=== PATIENT | female | born 1980 | race Caucasian/White ===

== ENCOUNTER 2017-05-19 12:56 | Emergency (ER) | payer OTHER ==
[2017-05-19 13:52] VITALS: RESP 18
--- NOTE | 2017-05-19 15:01 | XR ---
EXAMINATION TYPE: XR chest 2V DATE OF EXAM: 05/19/2017 COMPARISON: 05/30/2014 TECHNIQUE: PA and lateral views submitted. HISTORY: Productive cough FINDINGS: The lungs are clear and there is no pneumothorax, pleural effusion, or focal pneumonia. IMPRESSION: 1. No acute process.
--- NOTE | 2017-05-19 15:14 | ED ---
URI HPI - General Chief Complaint: Upper Respiratory Infection Stated Complaint: Chest Congestion Time Seen by Provider: 05/19/17 14:41 Source: patient Mode of arrival: ambulatory Limitations: no limitations - History of Present Illness Initial Comments: 37-year-old female patient presents to emergency department today for evaluation of nasal congestion, facial pressure, and cough 2 weeks. Patient states that she initially started with sore throat, nasal congestion, and cough. States that her sore throat has resolved however the nasal congestion and cough remained. She is coughing up green sputum, states that she is having green nasal discharge. States that her face hurts and that she has a lot of pressure. She states that she occasionally has trouble breathing. She states that she does feel wheezy. Patient denies any recent fever, chills, chest pain , abdominal pain, nausea, vomiting, diarrhea, constipation, back pain, numbness , tingling, headache, visual changes, hematuria, dysuria, urinary frequency, urinary urgency, or any other complaints. She does report being a cigarette smoker. - Related Data Home Medications Medication Instructions Recorded Confirmed Hydrocodone/Acetaminophen [[place] 1 each PO Q6H PRN 05/30/14 05/30/14 10-325] Previous Rx's Medication Instructions Recorded Cyclobenzaprine [Flexeril] 10 mg PO TID PRN #15 tab 05/30/14 Ibuprofen [Motrin] 600 mg PO Q8HR PRN #30 tab 05/30/14 Amoxic-Pot Clav 875-125Mg 1 tab PO Q12HR #20 tablet 05/19/17 [Augmentin 875-125] predniSONE 50 mg PO DAILY #5 tab 05/19/17 Allergies Allergy/AdvReac Type Severity Reaction Status Date / Time venom-honey bee Allergy Unknown Verified 05/19/17 13:48 [bee venom (honey bee)] Review of Systems ROS Statement: Those systems with pertinent positive or pertinent negative responses have been documented in the HPI. ROS Other: All systems not noted in ROS Statement are negative. Past Medical History Additional Past Medical History / Comment(s): chronic back pain History of Any Multi-Drug Resistant Organisms: None Reported Past Surgical History: Hysterectomy Past Psychological History: Anxiety Smoking Status: Current every day smoker Past Alcohol Use History: None Reported Past Drug Use History: Marijuana General Exam Limitations: no limitations General appearance: alert, in no apparent distress, other (This is a well- developed, well-nourished adult female patient in no acute distress. Temperature 97.8F, pulse 97, respirations 18, blood pressure 128/80, pulse ox 99% on room air.) Eye exam: Present: normal appearance, PERRL, EOMI. Absent: scleral icterus, conjunctival injection, periorbital swelling ENT exam: Present: normal exam, normal oropharynx, mucous membranes moist, TM's normal bilaterally Neck exam: Present: normal inspection. Absent: tenderness, meningismus, lymphadenopathy Respiratory exam: Present: normal lung sounds bilaterally, wheezes (Scattered expiratory wheezes posteriorly.). Absent: respiratory distress, rales, rhonchi , stridor Cardiovascular Exam: Present: regular rate, normal rhythm, normal heart sounds. Absent: systolic murmur, diastolic murmur, rubs, gallop, clicks GI/Abdominal exam: Present: soft, normal bowel sounds. Absent: distended, tenderness, guarding, rebound, rigid Neurological exam: Present: alert, oriented X3, CN II-XII intact Psychiatric exam: Present: normal affect, normal mood Skin exam: Present: warm, dry, intact, normal color. Absent: rash Course Vital Signs 05/19/17 05/19/17 13:49 15:27 Temperature 97.8 F 97.6 F Pulse Rate 97 89 Respiratory 18 18 Rate Blood Pressure 128/80 120/80 O2 Sat by Pulse 99 99 Oximetry Medical Decision Making - Medical Decision Making 37-year-old female patient presented for evaluation of nasal congestion, facial pressure, and cough 2 weeks. Chest x-ray was negative for any acute process. Patient will be treated with antibiotics for sinusitis as her symptoms have been present for 14 days. She will also be given a course of steroids for acute bronchitis. She is educated regarding smoking cessation. She is instructed to follow-up with her primary care physician for recheck in 1-2 days. She is instructed to return here immediately for any new, worsening, or concerning symptoms. She verbalizes understanding and agrees with this plan. - Radiology Data Radiology results: report reviewed, image reviewed 2 views of the chest are submitted shows the lungs are clear with no pneumothorax, pleural effusion, or focal pneumonia. Impression by Dr. Vanegas shows no acute process. Disposition Clinical Impression: Sinusitis, Acute bronchitis Disposition: HOME SELF-CARE Condition: Good Instructions: Sinusitis (ED), Acute Bronchitis (ED) Additional Instructions: Increase fluids. Use [id number] nasal decongestant. Take medications as directed. Return here immediately for any new, worsening, or concerning symptoms. Prescriptions: Amoxic-Pot Clav 875-125Mg [Augmentin 875-125] 1 tab PO Q12HR #20 tablet predniSONE 50 mg PO DAILY #5 tab Referrals: None,Stated [Primary Care Provider] - 1-2 days Time of Disposition: 15:13
[2017-05-19 15:28] VITALS: BP 120/80; PULSE 89; TEMP 97.6
== END 2017-05-19 15:28 | disposition home or self-care (01) ==
LOC: EC 12:56
DX: J32.9 Chronic sinusitis, unspecified (principal); J20.9 Acute bronchitis, unspecified; F17.200 Nicotine dependence, unspecified, uncomplicated; Z91.030 Bee allergy status
CPT/HCPCS: 71020; 99283

== ENCOUNTER 2021-02-21 10:44 | Emergency (ER) | payer OTHER ==
[2021-02-21 10:55] VITALS: BP 145/79; PULSE 77; RESP 16; TEMP 98
[2021-02-21] MEDS ORDERED: CIPROFLOXACIN-DEXAMETH 0.3-0.1% DROPS 7.5 ML BTL BOTH EARS STA (11:13)
--- NOTE | 2021-02-21 11:16 | ED ---
ENT HPI - General Chief complaint: ENT Stated complaint: Something in her ear Time Seen by Provider: 02/21/21 10:56 Source: patient, RN notes reviewed Mode of arrival: ambulatory Limitations: no limitations - History of Present Illness Initial comments: 41-year-old female presents emergency from chief complaint of bilateral ear issues. Patient states she feels like something: Ear states initially started and left ear notes in her right in both. Patient states that this started while camping. She denies any drainage. Patient states his poor carrying she can think of into her ear canal it's not helping. She feels like bugs crawling. Denies fevers or chills no prior surgery no other complaints. - Related Data Home Medications Medication Instructions Recorded Confirmed Hydrocodone/Acetaminophen [[place] 1 each PO Q6H PRN 05/30/14 05/30/14 10-325] Previous Rx's Medication Instructions Recorded Cyclobenzaprine [Flexeril] 10 mg PO TID PRN #15 tab 05/30/14 Ibuprofen [Motrin] 600 mg PO Q8HR PRN #30 tab 05/30/14 Amoxic-Pot Clav 875-125Mg 1 tab PO Q12HR #20 tablet 05/19/17 [Augmentin 875-125] predniSONE 50 mg PO DAILY #5 tab 05/19/17 Allergies Allergy/AdvReac Type Severity Reaction Status Date / Time venom-honey bee Allergy Unknown Verified 02/21/21 10:52 [bee venom (honey bee)] Review of Systems ROS Statement: Those systems with pertinent positive or pertinent negative responses have been documented in the HPI. ROS Other: All systems not noted in ROS Statement are negative. Past Medical History Additional Past Medical History / Comment(s): chronic back pain History of Any Multi-Drug Resistant Organisms: None Reported Past Surgical History: Hysterectomy Past Psychological History: Anxiety Smoking Status: Current every day smoker Past Alcohol Use History: None Reported Past Drug Use History: Marijuana General Exam Limitations: no limitations General appearance: alert, in no apparent distress Head exam: Present: atraumatic, normocephalic, normal inspection Eye exam: Present: normal appearance, PERRL, EOMI. Absent: scleral icterus, conjunctival injection, periorbital swelling ENT exam: Present: normal oropharynx, mucous membranes moist. Absent: TM's normal bilaterally, normal external ear exam (Bilateral EACs there is swelling, purulent drainage, excoriations noted) Neck exam: Present: normal inspection, full ROM. Absent: tenderness, meningismus, lymphadenopathy Respiratory exam: Present: normal lung sounds bilaterally. Absent: respiratory distress, wheezes, rales, rhonchi, stridor Cardiovascular Exam: Present: regular rate, normal rhythm, normal heart sounds. Absent: systolic murmur, diastolic murmur, rubs, gallop, clicks Course Vital Signs 02/21/21 10:52 Temperature 98.0 F Pulse Rate 77 Respiratory 16 Rate Blood Pressure 145/79 O2 Sat by Pulse 99 Oximetry Medical Decision Making - Medical Decision Making I did instruct the patient to stop morning chemicals into her ear canals. She is using eardrops as directed and return for any worsening change in symptoms. She will follow-up with primary care physician. Disposition Clinical Impression: Bilateral otitis externa Disposition: HOME SELF-CARE Condition: Stable Instructions (If sedation given, give patient instructions): Otitis Externa (ED) Additional Instructions: Use eardrops 4 drops twice daily for 7 days. Please return to the Emergency Department if symptoms worsen or any other concerns. Is patient prescribed a controlled substance at d/c from ED?: No Referrals: None,Stated [Primary Care Provider] - 1-2 days Time of Disposition: 11:16
== END 2021-02-21 11:50 | disposition home or self-care (01) ==
LOC: EC 10:44
DX: H60.93 Unspecified otitis externa, bilateral (principal); F41.9 Anxiety disorder, unspecified; F17.200 Nicotine dependence, unspecified, uncomplicated; F12.90 Cannabis use, unspecified, uncomplicated
CPT/HCPCS: 99283

== ENCOUNTER 2022-09-17 20:03 | Inpatient (IN) | payer MEDICAID, OTHER ==
--- NOTE | 2022-09-17 20:55 | ED ---
Psych HPI - General Chief Complaint: Psychiatric Symptoms Stated Complaint: mental health Time Seen by Provider: 09/17/22 20:29 Source: patient Mode of arrival: ambulatory - History of Present Illness Initial Comments: 43-year-old female with a long history of bipolar disorder and depression ADHD who presents tonight with complaints of despair she wants to kill herself she does want to be here anymore she states she has 46 she would try to shoot herself or hang herself. His multiple issues she states. She does admit to smoking marijuana denies any alcohol or other drug use at this time. Recently she did cut her forearm which is since healed up. She denies any other injury to her self at this time. She is very cheerful during the interview. MD Complaint: suicidal ideation, feels depressed - Related Data Home Medications Medication Instructions Recorded Confirmed No Known Home Medications 09/17/22 09/17/22 Allergies Allergy/AdvReac Type Severity Reaction Status Date / Time venom-honey bee Allergy Unknown Verified 09/17/22 21:56 [bee venom (honey bee)] Review of Systems ROS Statement: Those systems with pertinent positive or pertinent negative responses have been documented in the HPI. ROS Other: All systems not noted in ROS Statement are negative. Past Medical History Additional Past Medical History / Comment(s): chronic back pain History of Any Multi-Drug Resistant Organisms: None Reported Past Surgical History: Hysterectomy Past Psychological History: Anxiety, Bipolar, Depression Smoking Status: Current every day smoker Past Alcohol Use History: None Reported Past Drug Use History: Marijuana General Exam - General Exam Comments Initial Comments: This is a well developed well-nourished awake alert oriented 4 female who is tearful. Limitations: no limitations General appearance: alert, anxious Head exam: Present: atraumatic, normocephalic, normal inspection Eye exam: Present: normal appearance, PERRL, EOMI. Absent: scleral icterus, conjunctival injection, periorbital swelling ENT exam: Present: normal exam, mucous membranes moist Neck exam: Present: normal inspection. Absent: tenderness, meningismus, lymphadenopathy Respiratory exam: Present: normal lung sounds bilaterally. Absent: respiratory distress, wheezes, rales, rhonchi, stridor Cardiovascular Exam: Present: regular rate, normal rhythm, normal heart sounds. Absent: systolic murmur, diastolic murmur, rubs, gallop, clicks GI/Abdominal exam: Present: soft, normal bowel sounds. Absent: distended, tenderness, guarding, rebound, rigid Extremities exam: Present: normal inspection, full ROM, normal capillary refill. Absent: tenderness, pedal edema, joint swelling, calf tenderness Back exam: Present: normal inspection Neurological exam: Present: alert, oriented X3, CN II-XII intact Psychiatric exam: Present: normal affect, normal mood Skin exam: Present: warm, dry, intact, normal color. Absent: rash Course Vital Signs 09/17/22 20:05 Temperature 98 F Pulse Rate 107 H Respiratory 20 Rate Blood Pressure 126/80 O2 Sat by Pulse 100 Oximetry Medical Decision Making - Medical Decision Making The patient was evaluated by the EPS service and will be admitted for inpatient evaluation and treatment.Was pt. sent in by a medical professional or institution ([facility] Estrada, [employer]EL[employer], urgent care, hospital, or senior living...) When possible be specific @ -No Did you speak to anyone other than the patient for history (EMS, parent, family, police, friend...)? What history was obtained from this source @ -No Did you review nursing and triage notes (agree or disagree)? Why? @ -I reviewed and agree with nursing and triage notes Were old charts reviewed (outside hosp., previous admission, EMS record, old EKG, old radiological studies, urgent care reports/EKG's, senior living records)? Report findings @ -No old charts were reviewed Differential Diagnosis (chest pain, altered mental status, abdominal pain women, abdominal pain men, vaginal bleeding, weakness, fever, dyspnea, syncope, headache, dizziness, GI bleed, back pain, seizure, CVA, palpatations, mental health)? @ -not applicable EKG interpreted by me (3pts min.). @ -Not applicable X-rays interpreted by me (1pt min.). @ -None done CT interpreted by me (1pt min.). @ -None done U/S interpreted by me (1pt. min.). @ -None done What testing was considered but not performed or refused? (CT, X-rays, U/S, labs)? Why? @ -None What meds were considered but not given or refused? Why? @ -None Did you discuss the management of the patient with other professionals (professionals i.e. , IVAN, [employer] DEVELOPER, lab, RT, psych nurse, social work supervisor, personal investment adviser, teacher, special forces warrant officer, supportive employment case manager)? Give summary @ -EPS service Was smoking cessation discussed for >3mins.? @ -No Was critical care preformed (if so, how long)? @ -No Were there social determinants of health that impacted care today? How? (Homelessness, low income, unemployed, alcoholism, drug addiction, transportation, low edu. Level, literacy, decrease access to med. care, half-way, rehab)? @ -No Was there de-escalation of care discussed even if they declined (Discuss DNR or withdrawal of care, Hospice)? DNR status @ -No What co-morbidities impacted this encounter? (DM, HTN, Smoking, COPD, CAD, Cancer, CVA, ARF, Chemo, Hep., AIDS, mental health diagnosis, sleep apnea, morbid obesity)? @ -None Was patient admitted / discharged? Hospital course, mention meds given and route, prescriptions, significant lab abnormalities, going to OR and other pertinent info. @ -hospital course patient was admitted Undiagnosed new problem with uncertain prognosis? @ -No Drug Therapy requiring intensive monitoring for toxicity (Heparin, Nitro, In sulin, Cardizem)? @ -No Were any procedures done? @ -No Diagnosis/symptom? @ -Major depression, suicidal ideation Acute, or Chronic, or Acute on Chronic? @ -Acute on chronic Uncomplicated (without systemic symptoms) or Complicated (systemic symptoms)? @ -default Side effects of treatment? @ -No Exacerbation, Progression, or Severe Exacerbation? @ -No Poses a threat to life or bodily function? How? (Chest pain, [place], [place], pneumonia, PE, COPD, DKA, ARF, appy, cholecystitis, CVA, Diverticulitis, Homicidal, Suicidal, threat to staff... and all critical care pts) @ -S of nontreated - Lab Data Result diagrams: 09/17/22 21:31 09/17/22 21:31 Lab Results 09/17/22 09/17/22 09/17/22 Range/Units : 21: 21: WBC 6.9 (3.8-10.6) k/uL RBC 4.80 (3.80-5.40) m/uL Hgb 14.2 (11.4-16.0) gm/dL Hct 42.8 (34.0-46.0) % MCV 89.0 (80.0-100.0) fL MCH 29.6 (25.0-35.0) pg MCHC 33.2 (31.0-37.0) g/dL RDW 12.3 (11.5-15.5) % Plt Count 208 (150-450) k/uL MPV 8.1 Neutrophils % 76 % Lymphocytes % 18 % Monocytes % 3 % Eosinophils % 2 % Basophils % 0 % Neutrophils # 5.3 (1.3-7.7) k/uL Lymphocytes # 1.2 (1.0-4.8) k/uL Monocytes # 0.2 (0-1.0) k/uL Eosinophils # 0.1 (0-0.7) k/uL Basophils # 0.0 (0-0.2) k/uL Sodium 138 (137-145) mmol/L Potassium 4.4 (3.5-5.1) mmol/L Chloride 108 H (98-107) mmol/L Carbon Dioxide 23 (22-30) mmol/L Anion Gap 7 mmol/L BUN 17 (7-17) mg/dL Creatinine 0.77 (0.52-1.04) mg/dL Est GFR (CKD-EPI)AfAm >90 (>60 ml/min/1.73 sqM) Est GFR (CKD-EPI)NonAf >90 (>60 ml/min/1.73 sqM) Glucose 112 H (74-99) mg/dL Calcium 8.8 (8.4-10.2) mg/dL Total Bilirubin 0.6 (0.2-1.3) mg/dL AST 23 (14-36) U/L ALT 20 (4-34) U/L Alkaline Phosphatase 83 (38-126) U/L Total Protein 6.9 (6.3-8.2) g/dL Albumin 4.2 (3.5-5.0) g/dL Coronavirus (PCR) Not Detected (Not Detectd) Disposition Clinical Impression: Depression, Suicidal ideation Disposition: TRANSFER TO PSYCH HOSP/UNIT Condition: Stable Decision Date: 09/17/22 Decision Time: 22:03
[2022-09-17 21:41] LABS: Basophils % (A) 0 %; Eosinophils # (A) 0.1 k/uL (0-0.7); Eosinophils % (A) 2 %; HCT 42.8 % (34.0-46.0); HGB 14.2 gm/dL (11.4-16.0); Lymphocytes # (A) 1.2 k/uL (1.0-4.8); Lymphocytes % (A) 18 %; MCH 29.6 pg (25.0-35.0); MCHC 33.2 g/dL (31.0-37.0); Mean Platelet Volume 8.1; Monocytes # (A) 0.2 k/uL (0-1.0); Monocytes % (A) 3 %; Neutrophils # (A) 5.3 k/uL (1.3-7.7); Neutrophils % (A) 76 %; Platelet Count 208 k/uL (150-450); RDW 12.3 % (11.5-15.5); WBC 6.9 k/uL (3.8-10.6)
[2022-09-17 21:50] LABS: ALT 20 U/L (4-34); AST 23 U/L (14-36); African American GFR (CKD) >90 (>60 ml/min/1.73 sqM); Albumin 4.2 g/dL (3.5-5.0); Alkaline Phosphatase 83 U/L (38-126); Anion Gap 7 mmol/L; Blood Urea Nitrogen 17 mg/dL (7-17); Calcium 8.8 mg/dL (8.4-10.2); Carbon Dioxide 23 mmol/L (22-30); Chloride 108 mmol/L (98-107); Glucose 112 mg/dL (74-99); Non-African American GFR(CKD) >90 (>60 ml/min/1.73 sqM); Potassium 4.4 mmol/L (3.5-5.1); Sodium 138 mmol/L (137-145); Total Bilirubin 0.6 mg/dL (0.2-1.3); Total Protein 6.9 g/dL (6.3-8.2)
[2022-09-17] MEDS ORDERED: MAG HYDROX/AL HYDROX/SIMETH 30 ML CUP PO PRN (21:58)
[2022-09-17] MEDS ORDERED: MAGNESIUM HYDROXIDE 2,400 MG/10 ML CUP PO PRN (21:58)
[2022-09-17] MEDS ORDERED: ACETAMINOPHEN TAB 325 MG TAB PO PRN (21:58)
[2022-09-17] MEDS ORDERED: HALOPERIDOL LACTATE 5 MG/ML 1 ML VIAL IM PRN (21:58)
[2022-09-17] MEDS ORDERED: haloperidoL 5 MG TAB PO PRN (22:00)
[2022-09-17] MEDS ORDERED: LORazepam 2 MG/ML INJ IM PRN (22:00)
[2022-09-17] MEDS: LORazepam 1 MG TAB PO PRN (22:44)
[2022-09-18] MEDS: NICOTINE 14MG/24HR PATCH TRANSDERM SCH (09:01)
--- NOTE | 2022-09-18 11:34 | P.HP ---
Psychiatric H&P - . H&P Date: 09/18/22 History & Physical: Allergies Allergy/AdvReac Type Severity Reaction Status Date / Time venom-honey bee Allergy Unknown Verified 09/17/22 21:56 bee venom (honey bee) Vital Signs Temp 97.1 F L 09/17/22 22:48 Pulse 82 09/17/22 22:48 Resp 17 09/17/22 22:48 BP 136/92 09/17/22 22:48 Pulse Ox 100 09/17/22 22:48 FiO2 Intake & Output 09/17/22 09/18/22 09/18/22 18:59 06:59 18:59 Weight 74.843 kg Laboratory Last Values WBC 6.9 k/uL (3.8-10.6) 09/17/22 21: RBC 4.80 m/uL (3.80-5.40) 09/17/22 21:31 Hgb 14.2 gm/dL (11.4-16.0) 09/17/22 21: Hct 42.8 % (34.0-46.0) 09/17/22 21: MCV 89.0 fL (80.0-100.0) 09/17/22 21: MCH 29.6 pg (25.0-35.0) 09/17/22 21: MCHC 33.2 g/dL (31.0-37.0) 09/17/22 21: RDW 12.3 % (11.5-15.5) 09/17/22 21: Plt Count 208 k/uL (150-450) 09/17/22 21: MPV 8.1 09/17/22 21: Neutrophils % 76 % 09/17/22 21: Lymphocytes % 18 % 09/17/22 21: Monocytes % 3 % 09/17/22 21: Eosinophils % 2 % 09/17/22 21: Basophils % 0 % 09/17/22 21: Neutrophils # 5.3 k/uL (1.3-7.7) 09/17/22 21: Lymphocytes # 1.2 k/uL (1.0-4.8) 09/17/22 21: Monocytes # 0.2 k/uL (0-1.0) 09/17/22 21: Eosinophils # 0.1 k/uL (0-0.7) 09/17/22 21: Basophils # 0.0 k/uL (0-0.2) 09/17/22 21: Sodium 138 mmol/L (137-145) 09/17/22 21: Potassium 4.4 mmol/L (3.5-5.1) 09/17/22: Chloride 108 mmol/L (98-107) H 09/17/22: Carbon Dioxide 23 mmol/L (22-30) 09/17/22: Anion Gap 7 mmol/L 09/17/22: BUN 17 mg/dL (7-17) 09/17/22: Creatinine 0.77 mg/dL (0.52-1.04) 09/17/22: Est GFR (CKD-EPI)AfAm >90 (>60 ml/min/1.73 sqM) 09/17/22: Est GFR (CKD-EPI)NonAf >90 (>60 ml/min/1.73 sqM) 09/17/22: Glucose 112 mg/dL (74-99) H 09/17/22: Estimated Ave Glu mg/dL 118 09/17/22: Hemoglobin A1c 5.7 % (0.0-6.0) 09/17/22: Calcium 8.8 mg/dL (8.4-10.2) 09/17/22: Total Bilirubin 0.6 mg/dL (0.2-1.3) 09/17/22: AST 23 U/L (14-36) 09/17/22: ALT 20 U/L (4-34) 09/17/22: Alkaline Phosphatase 83 U/L (38-126) 09/17/22: Total Protein 6.9 g/dL (6.3-8.2) 09/17/22: Albumin 4.2 g/dL (3.5-5.0) 09/17/22: TSH 0.448 mIU/L (0.465-4.680) L 09/17/22 21: Coronavirus (PCR) Not Detected (Not Detectd) 09/17/22 21:23 11:28 IDENTIFYING DATA: Patient is a 42-year-old female who is currently living with her sister and family members, she is , she has 2 kids and is unemployed. HPI: Patient presented to the hospital yesterday complaining of depression and multiple suicidal thoughts and plans. Patient was admitted voluntarily to the mental health unit. Patient does not have a history of previous psychiatric admissions however does claim that she has a history of bipolar disorder. She also has a significant history for methamphetamine and cannabis use. Patient was seen today sleeping and agreeable to speak to card writer hand in the office. She claims that she is feeling "tired of life" and states that she doesn't want to "be on the earth anymore". She claims that multiple people have been lying to her and she is "over it". She claims that her recently left her about 2 days ago. She states that she was previously sober from methamphetamine use however relapsed at that time. She claims that she has been having significant relationship problems. She claims she wanted to come in the hospital before she started to "cut myself". She states that she is depressed, feeling very unhappy and also endorsing anxiety. She states that her sleep has been on and off at this time, appetite as been fairly poor. Patient denies any homicidal ideations intent or plan. She claims that she still does have suicidal thoughts however no plan today. At this time patient denies any auditory or visual hallucinations. Patient denies any flight of ideas racing thoughts and incr eased in goal directed behavior. He claims that she may have had a manic episode in the past however was also using drugs. Patient admits to using methamphetamine recently as noted above, states that she just got out of rehab in June. She states that she also uses marijuana daily and also cigarettes. PAST PSYCHIATRIC HISTORY: Patient states that she has a history of bipolar disorder. Patient denies being on any psychiatric medications. Patient denies any previous psychiatric hospitalizations. Patient denies any psychiatric outpatient follow-up. She claims that she attempted suicide twice in the past by cutting her wrists. PMH: As per ER note ALLERGIES: as per EMR CHEMICAL DEPENDENCY HISTORY: as per HPI FAMILY PSYCHIATRIC/SUBSTANCE USE HISTORY: Claims that her sister committed suicide. SOCIAL HISTORY: Patient was born and raised in [place], claims that she completed up to the ninth grade in school. 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 She currently lives with her sister and her family members, she is . She has 2 kids. She claims that she went to [facility] for about 6 years in the past when she was 18 years old for criminal sexual conduct. MENTAL STATUS EXAM: General Appearance: Patient appears to be short in stature, overweight, short hair, multiple tattoos, stated age is alert, directable, and attempts to cooperate. Patient appears to have poor hygiene and grooming. Poor eye contact. Behavior: Patient is seated without any agitated behavior. Looking at the floor. Appears to be upset. Speech: Patient's speech is fluent and nonpressured. Mood/Affect: Patient reports their mood is depressed and anxious, affect is congruent and constricted. Suicidality/Homicidality: Patient denies having any homicidal ideation intent or plan. Denies any suicidal ideations intent or plan Perceptions: Patient denies any visual hallucinations and denies any auditory hallucinations Though content/process: There is no evidence of any delusional thought content and thought process is linear and goal-directed. Focused on and suicidal thoughts. hopeless Memory and concentration: AOX3, grossly intact for the purposes of this session. Can spell "WORLD" backwards Judgment and insight: poor STRENGTHS/WEAKNESSES: strength is that patient is resilient. Weakness is that patient has poor judgment and is impulsive INTELLECT: average IMPRESSIONS: Bipolar disorder, currently depressed Methamphetamine abuse Cannabis use disorder Nicotine dependence PLAN: -Patient is admitted under voluntary status to MHU for stabilization of psychiatric symptoms and safety. Patient has signed adult voluntary form and medication consent and is placed in patient's chart. -Medications : Will start patient on Cymbalta 30 mg daily for mood/anxiety, lithium 150 mg twice a day for mood stabilization/suicidal thoughts, trazodone 100 mg daily at bedtime when necessary for insomnia. -Ativan and Haldol PRN for agitation/aggression -Patient was counselled on substance abuse and desired to cut back on use -Patient was informed of the risks, benefits and side effects of the medication and patient verbally consented to taking the medications. Patient signed med consent form and was placed in chart. -Internal Medicine consult to perform medical evaluation and physical. -NRT - nicotine patch -SW on board for discharge planning. Encourage patient to participate in groups to work on coping skills. Patient is not interested in going to rehab at this time.
[2022-09-18] MEDS: DULoxetine HCL 30 MG CAPSULE.DR PO SCH (12:18)
[2022-09-18] MEDS: LITHIUM CARBONATE 150 MG CAP PO SCH ×2 (12:18→20:26)
[2022-09-18] MEDS: LORazepam 1 MG TAB PO PRN (13:38)
[2022-09-18] MEDS: traZODone HCL 100 MG TAB PO PRN (20:27)
--- NOTE | 2022-09-18 23:36 | P.CONS ---
History of Present Illness - Reason for Consult Consult date: 09/18/22 - History of Present Illness The patient is a 42-year-old female with a PMH of chronic back and neck pain, tobacco abuse, and multiple psychiatric illnesses who had presented to the emergency room with complaints of depression and suicidal ideation. The patient was admitted to the mental health unit when she was seen and evaluated. The patient reports that she recently lost her life and has also become homeless, which is causing her a lot of stress. She also reports a prior history of methamphetamine abuse but denied any recent substance use. She is also denied alcohol use. Reports smoking half pack of cigarette daily. Denied experiencing chest pain, shortness of breath, fever, chills, cough, nausea, vomiting, abdominal pain, diarrhea. Review of systems: Pertinent positives and negatives as discussed in HPI, a complete review of systems was performed and all other systems are negative. Physical examination: General: non toxic, no distress, appears at stated age, obese Derm: no unusual rashes/lesions, no unusual ecchymoses, warm, dry Head: atraumatic, normocephalic, symmetric Eyes: EOMI, no lid lag, anicteric sclera ENT: Nose and ears atraumatic, no thrush, no pharyngeal erythema Neck: trachea midline, supple Mouth: no lip lesion, mucus membranes moist Cardiovascular: S1S2 reg, no murmur, no edema Lungs: CTA bilateral, no rhonchi, no rales , no accessory muscle use Abdominal: soft, nontender to palpation, no guarding Ext: no gross muscle atrophy, no contractures, Neuro: No gross focal neuro deficits noted Psych: Alert, oriented, appropriate affect Assessment/plan Low TSH -Check T4 and T3 levels Tobacco abuse -Advised on importance of cessation Depression and suicidal ideation -As per psychiatry Thank you for allowing us to participate in the care of this patient. We will follow peripherally. Do not hesitate to contact us with questions. Someone can be reached from the [facility] hospitalist group at all hours of the day at [phone]. Past Medical History Additional Past Medical History / Comment(s): chronic back pain History of Any Multi-Drug Resistant Organisms: None Reported Past Surgical History: Hysterectomy Past Psychological History: Anxiety, Bipolar, Depression Smoking Status: Current every day smoker Past Alcohol Use History: None Reported Past Drug Use History: Marijuana - Past Family History Mother Family Medical History: Hypertension Medications and Allergies Home Medications Medication Instructions Recorded Confirmed Type No Known Home Medications 09/17/22 09/17/22 History Allergies Allergy/AdvReac Type Severity Reaction Status Date / Time venom-honey bee Allergy Unknown Verified 09/17/22 21:56 [bee venom (honey bee)] Results CBC & Chem 7: 09/17/22 21:31 09/17/22 21:31 Labs: Abnormal Lab Results - Last 24 Hours (Table) 09/17/22 Range/Units 21:31 TSH 0.448 L (0.465-4.680) mIU/L
[2022-09-19 06:33] VITALS: RESP 16
[2022-09-19] MEDS: DULoxetine HCL 30 MG CAPSULE.DR PO SCH (08:27)
[2022-09-19] MEDS: LITHIUM CARBONATE 150 MG CAP PO SCH (08:27)
[2022-09-19] MEDS: LORazepam 1 MG TAB PO PRN ×2 (08:28→18:06)
[2022-09-19] MEDS: NICOTINE 14MG/24HR PATCH TRANSDERM SCH (08:29)
[2022-09-19] MEDS ORDERED: LORazepam 2 MG/ML INJ IM PRN (10:47)
[2022-09-19] MEDS: hydrOXYzine pamoate 25 MG CAP PO PRN (11:37)
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
[2022-09-19] MEDS: LITHIUM CARBONATE 300 MG CAP PO SCH (21:30)
[2022-09-20] MEDS: DULoxetine HCL 30 MG CAPSULE.DR PO SCH (08:18)
[2022-09-20] MEDS: NICOTINE 14MG/24HR PATCH TRANSDERM SCH (08:18)
[2022-09-20] MEDS: LORazepam 1 MG TAB PO PRN ×3 (08:18→20:39)
[2022-09-20] MEDS: LITHIUM CARBONATE 300 MG CAP PO SCH ×2 (08:19→20:38)
[2022-09-20] MEDS: hydrOXYzine pamoate 25 MG CAP PO PRN (12:30)
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
[2022-09-20] MEDS: traZODone HCL 100 MG TAB PO PRN (20:39)
[2022-09-21] MEDS: NICOTINE 14MG/24HR PATCH TRANSDERM SCH (08:29)
[2022-09-21] MEDS: DULoxetine HCL 30 MG CAPSULE.DR PO SCH (08:29)
[2022-09-21] MEDS: LORazepam 1 MG TAB PO PRN ×2 (08:29→18:02)
[2022-09-21] MEDS: LITHIUM CARBONATE 300 MG CAP PO SCH ×2 (08:29→19:39)
[2022-09-21 12:18] VITALS: BP 136/89; PULSE 83; TEMP 98
[2022-09-21] MEDS ORDERED: DULoxetine HCL 30 MG CAPSULE.DR PO ONE (14:00)
[2022-09-21] MEDS: hydrOXYzine pamoate 25 MG CAP PO PRN (19:38)
[2022-09-21] MEDS: traZODone HCL 100 MG TAB PO PRN (19:39)
--- NOTE | 2022-09-21 21:51 | PN ---
PROGRESS NOTE DATE OF SERVICE: 09/21/2022 CHIEF COMPLAINT: The patient was admitted for depression and significant thoughts of suicide. INTERVAL HISTORY: The patient has been doing fair. She had a quiet day yesterday. She comes out on the unit. She did attend one group yesterday but chose not to attend any others. Yesterday, she seemed to indicate that her mood was a little better overall. She continues with ups and downs in anxiety. She acknowledged that substance abuse issues are in the picture. She did receive p.r.n. medicines later in the evening for anxiety. She also received trazodone. She slept 7 hours last night. Today, she has been up and in general doing about the same. She chose not to attend groups today. She has been cooperative with care. She interacts with peers. She tolerates psychotropic medications. MENTAL STATUS: The patient gave fairly good eye contact. She was somewhat restless. She answered questions appropriately. Her thoughts were clear and coherent. She was somewhat spontaneous and interactive. Her affect was anxious. Her mood was down. She was somewhat distressed. There was no indication of thought disorder. She was denying thoughts of harm. Cognition was clear. ASSESSMENT AND PLAN: We will continue to engage the patient in individual and group therapeutic activities. It is noteworthy that the patient has been diagnosed with bipolar disorder though in my interview with the patient, she did not indicate that she has had any past episodes at any point in time of delia or hypomania. Thus, I would treat on the basis of a diagnosis of major depression. I will increase Cymbalta from 30 mg a day up to 60 mg a day. I reviewed with the patient that if she does have an underlying diagnosis of bipolar disorder, that antidepressants do present some risk to increase cycling. The patient seemed to be comfortable with the idea that at this point she is not showing any signs in that direction. She will continue lithium carbonate 300 mg twice a day which would be appropriate as an augmentation medication for depression. She will also continue trazodone 100 mg p.r.n. I discussed medication issues with the patient including indications, potential side effects and typical treatment course treating depression. We will focus on stabilization and discharge planning. MMMIKEL / LORETAN: [id number] /
[2022-09-22] MEDS ORDERED: DULoxetine HCL 60 MG CAPSULE.DR PO SCH (09:00)
[2022-09-22] MEDS: LITHIUM CARBONATE 300 MG CAP PO SCH (09:37)
[2022-09-22] MEDS: NICOTINE 14MG/24HR PATCH TRANSDERM SCH (09:37)
[2022-09-22] MEDS: hydrOXYzine pamoate 25 MG CAP PO PRN (09:38)
--- NOTE | 2022-09-22 09:43 | P.DS ---
Providers Date of admission: 09/17/22 21:56 Expected date of discharge: 09/22/22 Attending physician: Gio Jeffrey MD Consults: 09/17/22 21:58 Consult Physician Routine Consulting Provider: [facility] Consult Reason/Comments: H&P Do you want consulting provider notified?: Yes Primary care physician: Stated None - Discharge Diagnosis(es) (1) Bipolar disorder current episode depressed Current Visit: Yes Status: Acute Priority: High (2) Methamphetamine abuse Current Visit: Yes Status: Acute Priority: High (3) Cannabis use disorder Current Visit: Yes Status: Acute Priority: Medium (4) Nicotine dependence Current Visit: Yes Status: Acute Priority: Low Hospital Course: Admission HPI: Admission note was completed by ticket writer "Patient is a 42-year-old female who is currently living with her sister and family members, she is , she has 2 kids and is unemployed. Patient presented to the hospital yesterday complaining of depression and multiple suicidal thoughts and plans. Patient was admitted voluntarily to the mental health unit. Patient does not have a history of previous psychiatric admissions however does claim that she has a history of bipolar disorder. She also has a significant history for methamphetamine and cannabis use. Patient was seen today sleeping and agreeable to speak to ticket writer in the office. She claims that she is feeling "tired of life" and states that she doesn't want to "be on the earth anymore". She claims that multiple people have been lying to her and she is "over it". She claims that her recently left her about 2 days ago. She states that she was previously sober from methamphetamine use however relapsed at that time. She claims that she has been having significant relationship problems. She claims she wanted to come in the hospital before she started to "cut myself". She states that she is depressed, feeling very unhappy and also endorsing anxiety. She states that her sleep has been on and off at this time, appetite as been fairly poor. Patient denies any homicidal ideations intent or plan. She claims that she still does have suicidal thoughts however no plan today. At this time patient denies any auditory or visual hallucinations. Patient denies any flight of ideas racing thoughts and increased in goal directed behavior. He claims that she may have had a manic episode in the past however was also using drugs. Patient admits to using methamphetamine recently as noted above, states that she just got out of rehab in June. She states that she also uses marijuana daily and also cigarettes." Hospital course: Upon admission to the unit patient was directable and agreeable to commence treatment and signed adult voluntary form . Patient got along well with other patients on the unit and followed unit protocol. Patient was compliant with the medications and denied any side effects throughout hospital course. Patient was started on Cymbalta and increase her dose of 60 mg daily for mood/anxiety/pain, lithium 300 mg twice a day for mood stabilization/suicidal thoughts, trazodone 100 mg daily at bedtime when necessary for insomnia. Patient spoke of her stressors and engaged in therapy both group and individual. Patient was also seen by medical team for history and physical exam. Throughout the course of the hospitalization patient gradually improved with regards to mood, anxiety, sleep and returned back to their baseline level of functioning. On the day of discharge patient denied any suicidal or homicidal ideations intent or plan denied any auditory or visual hallucinations. Patient endorsed wanting to live for her health and her kids. The patient denied any access to guns or weapons. Patient denied any paranoia and did not endorse any delusions. Patient does have a significant history of substance abuse and was counseled on abstaining from all substances including alcohol and marijuana. Patient was offered however declined inpatient substance-abuse rehab. Patient elected to do outpatient substance use treatment program through [facility]. Patient was also counseled on the medications and need for regular compliance and was encouraged to follow-up with their outpatient appointment for mental health and also for primary care. Prior to discharge a family meeting will be arranged by manager social to answer any questions and ensure safety upon discharge. Mental status exam: General Appearance: Patient appears to have short hair, tattoos, stated age is alert, pleasant, and cooperative. Patient is in no acute distress and has improved hygiene and grooming Behavior: Patient is calmly seated without any agitated behavior. Speech: Patient's speech is fluent and nonpressured. Mood/Affect: Patient reports their mood is "good", affect is congruent Suicidality/Homicidality: Patient denies having any suicidal or homicidal ideation intent or plan. Perceptions: Patient denies any auditory or visual hallucinations. Though content/process: There is no evidence of any delusional thought content and thought process is linear and goal-directed. Memory and concentration: AOX3, grossly intact for the purposes of this session. Can spell "WORLD" backwards correctly. Judgment and insight: chronically poor, however has improved with guarded prognosis Impression: Bipolar disorder, currently depressed Methamphetamine abuse Cannabis use disorder Nicotine dependence Plan: -Continue with discharge today as patient has improved and stabilized psychiatrically and is not currently an imminent threat to herself and/or others. Patient will remain at chronically elevated risk for harm to self and/or others due to her polysubstance abuse. -Continue medications: Cymbalta 60 mg daily for mood/anxiety/pain, trazodone 100 mg daily at bedtime when necessary for sleep, lithium 300 mg twice a day for mood stabilization/suicidal thoughts. -Patient was counseled on the need for medication compliance and appropriate follow-up at mental health and also primary care for medical issues. Patient verbalized understanding and agreed. -Social work to arrange for and conduct family meeting to ensure safety upon discharge and answer any questions/concerns. Social work also to arrange for patients follow up appointments with [facility] for psychiatric care along with follow up with primary care provider. -Patient counseled on abstaining from recreational drugs and marijuana and alcohol. Was informed/educated on the adverse effects on their physical and mental health. Patient verbally agreed and understood. Patient was offered substance abuse treatment however declined at this time. -Patient was instructed to return to the hospital or seek immediate medical care if their psychiatric or medical symptoms do worsen or reoccur. Vital Signs Temp 98 F 09/21/22 12:18 Pulse 83 09/21/22 12:18 Resp 16 09/21/22 12:18 BP 136/89 09/21/22 12:18 Pulse Ox 96 09/21/22 12:18 FiO2 Allergies Allergy/AdvReac Type Severity Reaction Status Date / Time venom-honey bee Allergy Unknown Verified 09/17/22 21:56 [bee venom (honey bee)] Laboratory Results WBC 6.9 k/uL (3.8-10.6) 09/17/22 21:31 RBC 4.80 m/uL (3.80-5.40) 09/17/22 21:31 Hgb 14.2 gm/dL (11.4-16.0) 09/17/22 21:31 Hct 42.8 % (34.0-46.0) 09/17/22 21: MCV 89.0 fL (80.0-100.0) 09/17/22: MCH 29.6 pg (25.0-35.0) 09/17/22: MCHC 33.2 g/dL (31.0-37.0) 09/17/22: RDW 12.3 % (11.5-15.5) 09/17/22: Plt Count 208 k/uL (150-450) 09/17/22: MPV 8.1 09/17/22: Neutrophils % 76 % 09/17/22: Lymphocytes % 18 % 09/17/22: Monocytes % 3 % 09/17/22: Eosinophils % 2 % 09/17/22: Basophils % 0 % 09/17/22: Neutrophils # 5.3 k/uL (1.3-7.7) 09/17/22: Lymphocytes # 1.2 k/uL (1.0-4.8) 09/17/22: Monocytes # 0.2 k/uL (0-1.0) 09/17/22: Eosinophils # 0.1 k/uL (0-0.7) 09/17/22: Basophils # 0.0 k/uL (0-0.2) 09/17/22: Sodium 138 mmol/L (137-145) 09/17/22: Potassium 4.4 mmol/L (3.5-5.1) 09/17/22: Chloride 108 mmol/L (98-107) H 09/17/22: Carbon Dioxide 23 mmol/L (22-30) 09/17/22: Anion Gap 7 mmol/L 09/17/22: BUN 17 mg/dL (7-17) 09/17/22: Creatinine 0.77 mg/dL (0.52-1.04) 09/17/22 21: Est GFR (CKD-EPI)AfAm >90 (>60 ml/min/1.73 sqM) 09/17/22: Est GFR (CKD-EPI)NonAf >90 (>60 ml/min/1.73 sqM) 09/17/22 21: Glucose 112 mg/dL (74-99) H 09/17/22 21:[address] Glu mg/dL 118 09/17/22 21:31 Hemoglobin A1c 5.7 % (0.0-6.0) 09/17/22 21:31 Calcium 8.8 mg/dL (8.4-10.2) 09/17/22 21:31 Total Bilirubin 0.6 mg/dL (0.2-1.3) 09/17/22 21:31 AST 23 U/L (14-36) 09/17/22 21: ALT 20 U/L (4-34) 09/17/22 21:31 Alkaline Phosphatase 83 U/L (38-126) 09/17/22 21: Total Protein 6.9 g/dL (6.3-8.2) 09/17/22 21: Albumin 4.2 g/dL (3.5-5.0) 09/17/22 21:31 TSH 0.448 mIU/L (0.465-4.680) L 09/17/22 21:31 Total T4 9.3 ug/dL (4.5 - 10.9) 09/19/22 09:22 Free T4 1.44 ng/dL (0.78-2.19) 09/19/22 09:22 Total T3 129.0 ng/dL (60.0-180.0) 09/19/22 09:22 [place] 0.5 mmol/L 09/22/22 06:20 Coronavirus (PCR) Not Detected (Not Detectd) 09/17/22 21:31 Patient Condition at Discharge: Stable Plan - Discharge Summary New Discharge Prescriptions: New DULoxetine HCL [Cymbalta] 60 mg PO DAILY 30 Days #30 cap Nicotine 14Mg/24Hr Patch [Habitrol] 1 patch TRANSDERM DAILY 14 Days #14 patch hydrOXYzine pamoate [Vistaril] 25 mg PO BID PRN 30 Days #60 cap PRN Reason: Anxiety traZODone HCL [Desyrel] 100 mg PO HS PRN 30 Days #30 tab PRN Reason: Insomnia [place] Carbonate 300 mg PO BID 30 Days #60 cap Discharge Medication List DULoxetine HCL [Cymbalta] 60 mg PO DAILY 30 Days #30 cap 09/22/22 [Rx] [place] Carbonate 300 mg PO BID 30 Days #60 cap 09/22/22 [Rx] Nicotine 14Mg/24Hr Patch [Habitrol] 1 patch TRANSDERM DAILY 14 Days #14 patch 09/22/22 [Rx] hydrOXYzine pamoate [Vistaril] 25 mg PO BID PRN 30 Days #60 cap 09/22/22 [Rx] traZODone HCL [Desyrel] 100 mg PO HS PRN 30 Days #30 tab 09/22/22 [Rx] Follow up Appointment(s)/Referral(s): None,Stated [Primary Care Provider] - 1-2 days Activity/Diet/Wound Care/Special Instructions: Avoid the use of street drugs and alcohol. Take all prescriptions as prescribed. When you are in need of refills on your medications, please contact your medical provider and/or outpatient psychiatrist to have this done. Please go to scheduled outpatient appointment for aftercare treatment. If symptoms r eturn or become worse, call the crisis line at and/or go to the nearest emergency room for evaluation Discharge Disposition: HOME SELF-CARE
== END 2022-09-22 11:41 | disposition home or self-care (01) | DRG 885 ==
LOC: EC 20:03 → 3MHU 21:56
PROVIDERS: ADMIT Psychiatry & Neurology Psychiatry; ATTEND Psychiatry & Neurology Psychiatry
DX: F31.30 Bipolar disorder, current episode depressed, mild or moderate severity, unspecified (principal); R45.851 Suicidal ideations; F12.90 Cannabis use, unspecified, uncomplicated; F15.90 Other stimulant use, unspecified, uncomplicated; F17.210 Nicotine dependence, cigarettes, uncomplicated; F41.9 Anxiety disorder, unspecified; G47.00 Insomnia, unspecified; Z79.899 Other long term (current) drug therapy; Z20.822 Contact with and (suspected) exposure to COVID-19
CPT/HCPCS: 36415; 80053; 80178; 82075; 83036; 84436; 84439; 84443; 84480; 84482; 85025; 87635; 99285

== ENCOUNTER 2024-09-26 06:55 | Emergency (ER) | payer OTHER ==
[2024-09-26] MEDS: methylPREDNISolone SOD SUCCI 125 MG/2 ML VIAL IV STA (07:19)
[2024-09-26] MEDS: ORPHENADRINE 30 MG/ML 2 ML VIAL IVP STA (07:20)
[2024-09-26] MEDS: HYDROmorphone 1 MG/ML 1 ML SYRINGE IVP STA (07:27)
--- NOTE | 2024-09-26 07:28 | ED ---
General Adult HPI - General Stated complaint: back pain/abd pain Time Seen by Provider: 09/26/24 06:56 Source: patient, RN notes reviewed Mode of arrival: EMS Limitations: no limitations - History of Present Illness Initial comments: 44-year-old female presents emergency department with chief complaint of low back pain. Patient states been having creasing pain over last couple weeks. Patient states she was seen Varinderyair Montero and was told that she probably need surgery. She states she had to go home because her mom went on to hospice. Patient states that she was at [facility] today but was not seen and was picked up by EMS and the waiting room. Patient states she has pain rating down her left leg. She denies any bowel, bladder and cons retention no saddle anesthesias no other complaints. - Related Data Previous Rx's Medication Instructions Recorded DULoxetine HCL [Cymbalta] 60 mg PO DAILY 30 Days #30 cap 09/22/22 [place] Carbonate 300 mg PO BID 30 Days #60 cap 09/22/22 Nicotine 14Mg/24Hr Patch [Habitrol] 1 patch TRANSDERM DAILY 14 Days 09/22/22 #14 patch hydrOXYzine pamoate [Vistaril] 25 mg PO BID PRN 30 Days #60 cap 09/22/22 traZODone HCL [Desyrel] 100 mg PO HS PRN 30 Days #30 tab 09/22/22 Nitrofurantoin Monohyd/M-Cryst 100 mg PO Q12HR #14 cap 09/26/24 [Macrobid] predniSONE 50 mg PO DAILY #5 tab 09/26/24 Allergies Allergy/AdvReac Type Severity Reaction Status Date / Time naproxen Allergy Rash/Hives Verified 09/26/24 07:11 venom-honey bee Allergy Unknown Verified 09/17/22 21:56 [bee venom (honey bee)] Review of Systems ROS Statement: Those systems with pertinent positive or pertinent negative responses have been documented in the HPI. ROS Other: All systems not noted in ROS Statement are negative. Past Medical History Additional Past Medical History / Comment(s): chronic back pain History of Any Multi-Drug Resistant Organisms: None Reported Past Surgical History: Hysterectomy Past Psychological History: Anxiety, Bipolar, Depression Smoking Status: Current every day smoker Past Alcohol Use History: None Reported Past Drug Use History: Marijuana - Past Family History Mother Family Medical History: Hypertension General Exam Limitations: no limitations General appearance: alert, in no apparent distress Head exam: Present: atraumatic, normocephalic, normal inspection Eye exam: Present: normal appearance, PERRL, EOMI. Absent: scleral icterus, conjunctival injection, periorbital swelling Neck exam: Present: normal inspection. Absent: tenderness, meningismus, lymphadenopathy Respiratory exam: Present: normal lung sounds bilaterally. Absent: respiratory distress, wheezes, rales, rhonchi, stridor Cardiovascular Exam: Present: regular rate, normal rhythm, normal heart sounds. Absent: systolic murmur, diastolic murmur, rubs, gallop, clicks GI/Abdominal exam: Present: soft, normal bowel sounds. Absent: distended, tenderness, guarding, rebound, rigid Extremities exam: Present: other (Extremity strength equal bilaterally neurovascular intact pedal pulses equal bilaterally) Back exam: Present: full ROM, tenderness, muscle spasm, paraspinal tenderness. Absent: vertebral tenderness Neurological exam: Present: alert, oriented X3, CN II-XII intact, reflexes normal. Absent: motor sensory deficit Skin exam: Present: warm, dry, intact, normal color. Absent: rash Course Vital Signs 09/26/24 09/26/24 09/26/24 07:04 08:40 09:25 Temperature 98.1 F 98 F Pulse Rate 63 87 77 Respiratory 20 22 20 Rate Blood Pressure 150/118 157/106 155/91 O2 Sat by Pulse 98 98 98 Oximetry Medical Decision Making - Medical Decision Making Was pt. sent in by a medical professional or institution (IVAN Estrada, CLAIM ADJUSTER, urgent care, hospital, or alf...) When possible be specific @ -No Did you speak to anyone other than the patient for history (EMS, parent, family, police, friend...)? What history was obtained from this source @ -No Did you review nursing and triage notes (agree or disagree)? Why? @ -I reviewed and agree with nursing and triage notes Were old charts reviewed (outside hosp., previous admission, EMS record, old EKG, old radiological studies, urgent care reports/EKG's, alf records)? Report findings @ -Pain records from, calm patient had lumbar injection, MRI showing bulging disc with left radicular symptoms Differential Diagnosis (chest pain, altered mental status, abdominal pain women, abdominal pain men, vaginal bleeding, weakness, fever, dyspnea, syncope, headache, dizziness, GI bleed, back pain, seizure, CVA, palpatations, mental health, musculoskeletal)? @ -Differential Back Pain: Strain, zoster, cauda equina syndrome, epidural abscess, vertebral osteomyelitis, discitis, fracture, subluxation, disc herniation, DJD, spinal stenosis, dissection, AAA, pancreatitis, peptic ulcer disease, pyelonephritis, kidney stone, this is not meant to be an all-inclusive list. EKG interpreted by me (3pts min.). @ -None X-rays interpreted by me (1pt min.). @ -None done CT interpreted by me (1pt min.). @ -None done U/S interpreted by me (1pt. min.). @ -None done What testing was considered but not performed or refused? (CT, X-rays, U/S, labs)? Why? @ -None What meds were considered but not given or refused? Why? @ -None Did you discuss the management of the patient with other professionals (professionals i.e. , PA, CLAIM ADJUSTER, lab, RT, psych nurse, social media assistant, underground mining section foreman, teacher, business development officer, correctional case records supervisor)? Give summary @ -No Was smoking cessation discussed for >3mins.? @ -No Was critical care preformed (if so, how long)? @ -No Were there social determinants of health that impacted care today? How? (Homelessness, low income, unemployed, alcoholism, drug addiction, transportation, low edu. Level, literacy, decrease access to med. care, detention, rehab)? @ -No Was there de-escalation of care discussed even if they declined (Discuss DNR or withdrawal of care, Hospice)? DNR status @ -No What co-morbidities impacted this encounter? (DM, HTN, Smoking, COPD, CAD, Cancer, CVA, ARF, Chemo, Hep., AIDS, mental health diagnosis, sleep apnea, morbid obesity)? @ -None Was patient admitted / discharged? Hospital course, mention meds given and route, prescriptions, significant lab abnormalities, going to OR and other pertinent info. @ -Discharge patient is found to be in methamphetamines very erratic behavior in the emergency department. Patient does have evidence of UTI discharged on antibiotics patient advised she can continue steroids. She came very belligerent and left. Undiagnosed new problem with uncertain prognosis? @ -No Drug Therapy requiring intensive monitoring for toxicity (Heparin, Nitro, Insulin, Cardizem)? @ -No Were any procedures done? @ -No Diagnosis/symptom? @ -Methamphetamine abuse, lumbar back pain, UTI Acute, or Chronic, or Acute on Chronic? @ -Acute Uncomplicated (without systemic symptoms) or Complicated (systemic symptoms)? @ -Uncomplicated Side effects of treatment? @ -No Exacerbation, Progression, or Severe Exacerbation? @ -No Poses a threat to life or bodily function? How? (Chest pain, [place], [place], pneumonia, PE, COPD, DKA, ARF, appy, cholecystitis, CVA, Diverticulitis, Homicidal, Suici lisandro, threat to staff... and all critical care pts) @ -No - Lab Data Lab Results 09/26/24 Range/Units 07:44 Urine Color Colorless Urine Appearance Clear (Clear) Urine pH 6.0 (5.0-8.0) Ur Specific [place] 1.017 (1.001-1.035) Urine Protein Negative (Negative) Urine Glucose (UA) Negative (Negative) Urine Ketones Negative (Negative) Urine Blood Negative (Negative) Urine Nitrite Positive H (Negative) Urine Bilirubin Negative (Negative) Urine Urobilinogen <2.0 (<2.0) mg/dL Ur Leukocyte Esterase Negative (Negative) Urine RBC 1 (0-5) /hpf Urine WBC 1 (0-5) /hpf Ur Squamous Epith Cells 2 (0-4) /hpf Urine Bacteria Rare H (None) /hpf Urine Mucus Rare H (None) /hpf Urine Opiates Screen Not Detected (NotDetected) Ur Oxycodone Screen Not Detected (NotDetected) Urine Methadone Screen Not Detected (NotDetected) Ur Barbiturates Screen Not Detected (NotDetected) U Tricyclic Antidepress Not Detected (NotDetected) Ur Phencyclidine Scrn Not Detected (NotDetected) Ur Amphetamines Screen Detected H (NotDetected) U Methamphetamines Scrn Detected H (NotDetected) U Benzodiazepines Scrn Not Detected (NotDetected) Urine Cocaine Screen Not Detected (NotDetected) U Marijuana (THC) Screen Detected H (NotDetected) Disposition Clinical Impression: Methamphetamine abuse, Back pain, UTI (urinary tract infection) Disposition: HOME SELF-CARE Condition: Stable Instructions (If sedation given, give patient instructions): Acute Low Back Pain (ED) Additional Instructions: Please return to the Emergency Department if symptoms worsen or any other concerns. Prescriptions: Nitrofurantoin Monohyd/M-Cryst [Macrobid] 100 mg PO Q12HR #14 cap predniSONE 50 mg PO DAILY #5 tab Is patient prescribed a controlled substance at d/c from ED?: No Referrals: None,Stated [REFERRING] - 1-2 days Mati Chang DO [Doctor of Osteopathic Medicine] - 1-2 days Time of Disposition: 09:01
[2024-09-26 08:42] LABS: Appearance,Urine Clear (Clear); Bacteria,Urine Rare /hpf; Bilirubin,Urine Negative (Negative); Blood,Urine Negative (Negative); Color,Urine Colorless; Glucose,Urine (UA) Negative (Negative); Ketones,Urine Negative (Negative); Leukocyte Esterase,Urine Negative (Negative); Mucus,Urine Rare /hpf; Nitrite,Urine Positive (Negative); Protein,Urine Negative (Negative); RBC,Urine 1 /hpf (0-5); Specific Gravity,Urine 1.017 (1.001-1.035); Squamous Epithelial Cell,Urine 2 /hpf (0-4); Urobilinogen,Urine <2.0 mg/dL (<2.0); WBC,Urine 1 /hpf (0-5)
[2024-09-26 08:45] LABS: Amphetamine Screen,Urine Detected (NotDetected); Barbiturate Screen,Urine Not Detected (NotDetected); Benzodiazepines Screen,Urine Not Detected (NotDetected); Cocaine Screen,Urine Not Detected (NotDetected); Methadone Screen, Urine Not Detected (NotDetected); Opiate Screen,Urine Not Detected (NotDetected); Oxycodone Screen, Urine Not Detected (NotDetected); Phencyclidine Screen,Urine Not Detected (NotDetected); Tricyclic Antidepressant,Urine Not Detected (NotDetected); Urn Cannabinoid Scrn Detected (NotDetected)
[2024-09-26 09:27] VITALS: BP 155/91; PULSE 77; RESP 20; TEMP 98
== END 2024-09-26 09:26 | disposition home or self-care (01) ==
LOC: EC 06:55
DX: N39.0 Urinary tract infection, site not specified (principal); F15.10 Other stimulant abuse, uncomplicated; F17.200 Nicotine dependence, unspecified, uncomplicated; Z91.030 Bee allergy status; Z88.6 Allergy status to analgesic agent
CPT/HCPCS: 81001; 80306; 99284; 96374; 96375; J2360; J2919